=== PATIENT | female | born 1975 | race Caucasian/White ===

== ENCOUNTER 2017-05-06 19:50 | Emergency (ER) | payer BC ==
[2017-05-06 21:07] VITALS: BP 139/81
[2017-05-06] MEDS ORDERED: Azithromycin TAB* 250 MG PO ONE (21:30)
--- NOTE | 2017-05-06 21:56 | UC ---
Ear Complaint HPI - HPI Summary HPI Summary: LEFT EAR PAIN 3 DAYS NO FEVER,, NO COUGH, NO SORE THROAT. NO RASHES. NO CONGESTION - History of Current Complaint Chief Complaint: UCEar Stated Complaint: LEFT EAR PAIN Time Seen by Provider: 05/06/17 21:01 Hx Obtained From: Patient Hx Last Menstrual Period: one month Onset/Duration: Gradual Onset, Lasting Days, Still Present Severity Initially: Moderate Severity Currently: Moderate Pain Intensity: 10 Pain Scale Used: 0-10 Numeric - Allergies/Home Medications Allergies/Adverse Reactions: Allergies Allergy/AdvReac Type Severity Reaction Status Date / Time Penicillins Allergy Itching Verified 05/06/17 21:07 Home Medications: Home Medications Blood Pressure 150 mg PO DAILY 05/06/17 [History Confirmed 05/06/17] PMH/Surg Hx/FS Hx/Imm Hx Previously Healthy: Yes - Surgical History Surgical History: Yes Surgery Procedure, Year, and Place: L arm surgery. Left Fem-Pop Bypass. NASAL AND THROAT. BREAST REMOVAL B/L - Family History Known Family History: Negative: Respiratory Disease - Social History Occupation: Employed Full-time Lives: With Family Alcohol Use: Occasionally Substance Use Type: Marijuana Substance Use Comment - Amount & Last Used: yesterday Smoking Status (MU): Heavy Every Day Tobacco Smoker Amount Used/How Often: 1ppd - 1 1/2 ppd Length of Time of Smoking/Using Tobacco: ON AND OFF FOR 34 YEARS Have You Smoked in the Last Year: Yes When Did the Patient Quit Smoking/Using Tobacco: 10 months ago Review of Systems Constitutional: Negative Skin: Negative Eyes: Negative ENT: Ear Ache, Nasal Discharge, Sinus Congestion Respiratory: Negative Cardiovascular: Negative Gastrointestinal: Negative Genitourinary: Negative Motor: Negative Neurovascular: Negative Musculoskeletal: Negative Neurological: Negative Psychological: Negative Is Patient Immunocompromised?: No All Other Systems Reviewed And Are Negative: Yes Physical Exam Triage Information Reviewed: Yes Appearance: No Pain Distress, Well-Nourished, Ill-Appearing Vital Signs: Initial Vital Signs Temp 98.1 F 05/06/17 20:59 Pulse 79 05/06/17 20:59 Resp 24 05/06/17 20:59 BP 139/81 05/06/17 20:59 Pulse Ox 100 05/06/17 20:59 Vital Signs Reviewed: Yes Eye Exam: Normal ENT: Positive: Pharynx normal, TM bulging, TM dull, TM red - LEFT, Other: - EDEMA LEFT EAC Dental Exam: Normal Neck exam: Normal Neck: Positive: Supple, Nontender, No Lymphadenopathy Respiratory Exam: Normal Respiratory: Positive: Chest non-tender, Lungs clear, Normal breath sounds, No respiratory distress, No accessory muscle use Cardiovascular Exam: Normal Cardiovascular: Positive: RRR, No Murmur, Pulses Normal Abdominal Exam: Normal Abdomen Description: Positive: Nontender, No Organomegaly Musculoskeletal Exam: Normal Musculoskeletal: Positive: Strength Intact, ROM Intact Neurological Exam: Normal Psychological Exam: Normal Psychological: Positive: Normal Response To Family Skin Exam: Normal Ear Complaint Course/Dx - Differential Dx/Diagnosis Differential Diagnosis/HQI/PQRI: Otitis Externa, Otitis Media, Perforated TM, URI Provider Diagnoses: LEFT OTITIS MEDIA/EXTERNA Discharge - Discharge Plan Condition: Stable Disposition: HOME Prescriptions: Azithromycin TAB* [Zithromax TAB (Z-TAMEKA) 250 mg #6 tabs] 250 mg PO DAILY #4 tab Neomyc/Polym/HC 1% OTIC SUSP* [Cortisporin Otic Susp 1%*] 4 drop LEFT EAR TID # 1 btl Patient Education Materials: Otitis Externa (ED), Otitis Media (ED) Referrals: Renée Gonzales PA [Primary Care Provider] -
== END 2017-05-06 21:50 | disposition home or self-care (01) ==
LOC: UCCORT 19:50
DX: H66.92 Otitis media, unspecified, left ear (principal); H60.92 Unspecified otitis externa, left ear; F12.90 Cannabis use, unspecified, uncomplicated; Z88.0 Allergy status to penicillin; Z72.0 Tobacco use
CPT/HCPCS: 99212; A9270-GY; G0463

== ENCOUNTER 2017-10-24 16:36 | Emergency (ER) | payer BC | END 2017-10-24 17:07 | disposition left against medical advice (07) | LOC: UCCORT 16:36 | DX: R52 Pain, unspecified (principal); R68.89 Other general symptoms and signs; Z53.21 Procedure and treatment not carried out due to patient leaving prior to being seen by health care provider ==